=== PATIENT | male | born 1990 | race Hispanic/Latino ===

== ENCOUNTER 2022-01-31 00:08 | Emergency (ER) | payer OTHER ==
[~2022-01-31] VITALS: Ht 175.3 cm; Wt 89.8 kg
[2022-01-31] MEDS ORDERED: AMOX/CLAV 875/125MG TAB PO ONE (01:30)
[2022-01-31] MEDS ORDERED: KETOROLAC 60 MG VIAL (30MG/ML) IM ONE (01:30)
[2022-01-31] MEDS ORDERED: CEFTRIAXONE 1G VIAL IM ONE (01:30)
[2022-01-31] MEDS ORDERED: LIDOCAINE HCL-MPF 1% 2ML VIAL ONE (01:34)
[2022-01-31] MEDS ORDERED: CLINDAMYCIN 150 MG CAP ONE (01:45)
[2022-01-31] MEDS ORDERED: CLINDAMYCIN 150 MG CAP PO ONE (02:00)
[2022-01-31 02:51] VITALS: BP 124/71
[2022-01-31] MEDS ORDERED: IBUP-2070 PO (04:46)
[2022-01-31] MEDS ORDERED: CLIN-141 PO (04:46)
[2022-01-31] MEDS ORDERED: AMOX1TAB16 PO (04:46)
== END 2022-01-31 05:04 | disposition home or self-care (01) ==
LOC: EDH 00:08
DX: J03.90 Acute tonsillitis, unspecified (principal); Z98.890 Other specified postprocedural states
CPT/HCPCS: 36415; 86308; 87880; 96372 ×2; 99284; J0696; J1885; J3490